=== PATIENT | male | born 1965 | race Caucasian/White ===

== ENCOUNTER 2017-01-27 18:34 | Emergency (ER) | payer OTHER ==
[2017-01-27] MEDS ORDERED: 0.9 % SODIUM CHLORIDE 1,000 ML BAG IV ONE (18:39)
[2017-01-27] MEDS ORDERED: ONDANSETRON HCL IV 4 MG/2 ML VIAL IV ONE (18:39)
[2017-01-27] MEDS ORDERED: MORPHINE SULFATE 5 MG/ML PFS IVP ONE ×2 (18:41→19:26)
--- NOTE | 2017-01-27 18:47 | Emergency Department Record ---
History of Present Illness - General Chief Complaint: Abdominal Pain Stated Complaint: BACK/ABD PAIN Time Seen by Provider: 01/27/17 18:39 Source: Patient, Family Mode of Arrival: Ambulatory Limitations: No limitations - History of Present Illness Initial Comments: 51 yo male presents with left sided abdominal pain that started fairly sudden about 1.5 hours ago. The pain has gradually increased in severity. It is an ache or pressure. He has mild nausea. No fever or vomiting. No hematuria or diarrhea. He does have a history of renal stones in the past and thinks he had his gall bladder removed. He had a normal day at work without pain. PCP is MD Complaint: Abdominal pain -: Hour(s) (1.5) Location: LLQ Radiation: LLQ Migration to: LLQ Severity: Severe Quality: Aching, Stabbing Consistency: Constant Improves With: Nothing Worsens With: Nothing Context: Other Associated Symptoms: Anorexia - Related Data Home Medications Medication Instructions Recorded Confirmed Last Taken Aspirin Chewable 81 mg PO DAILY 01/07/14 01/27/17 10/14/15 Lisinopril [Zestril] 20 mg PO DAILY 09/10/15 01/27/17 10/14/15 Colesevelam HCl [Welchol] 625 mg PO DAILY 01/27/17 01/27/17 Unknown Previous Rx's Medication Instructions Recorded Hydrocodone/Acetaminophen [[place] 1 each PO Q6H #15 tablet 01/27/17 7.5-325 Tablet] Tamsulosin HCl [Flomax] 0.4 mg PO DAILY #10 cap.er.24h 01/27/17 Allergies Allergy/AdvReac Type Severity Reaction Status Date / Time No Known Drug Allergies Allergy Verified 10/14/15 11:07 Review of Systems Constitutional: Denies: Chills, Fever, Malaise, Weakness Eyes: Denies: Eye discharge, Eye pain ENT: Denies: Congestion, Throat pain Respiratory: Denies: Cough, Dyspnea, Stridor, Wheezes Cardiovascular: Denies: Chest pain, Palpitations, Syncope Endocrine: Denies: Fatigue Gastrointestinal: Reports: As per HPI. Denies: Abdominal pain, Nausea, Vomiting Genitourinary: Denies: Dysuria, Frequency, Incontinence, Retention, Urgency Musculoskeletal: Reports: Back pain. Denies: Arthralgia, Joint swelling, Myalgia, Neck pain Skin: Denies: Bruising, Change in color, Rash Neurological: Denies: Headache, Numbness, Vertigo, Weakness Psychiatric: Denies: Anxiety Hematological/Lymphatic: Denies: Blood Clots, Easy bleeding, Easy bruising, Swollen glands Past Medical History - SOCIAL HISTORY Smoking Status: Current every day smoker - RESPIRATORY Hx Respiratory Disorders: No - CARDIOVASCULAR Hx Cardio Disorders: Yes Hx Cardiac Cath: Yes (1998, cardiac workup) Hx Chest Pain: Yes (1998) Hx Hypertension: Yes Comment:: hypercholesteremia - NEURO Hx Neuro Disorders: No - GI Hx GI Disorders: Yes Hx Reflux: Yes (hx 10years ago) Hx Rectal Bleeding: Yes - Hx Genitourinary Disorders: Yes Hx Bladder Problem: Yes (Bladder Stones) - ENDOCRINE Hx Endocrine Disorders: No - MUSCULOSKELETAL Hx Musculoskeletal Disorders: No - PSYCH Hx Psych Problems: No - HEMATOLOGY/ONCOLOGY Hx Hematology/Oncology Disorders: No Family Medical History Family Hx Comment (NOT TO BE USED IN PLACE OF ITEMS BELOW): Unknown due to adoption Physical Exam - General General Appearance: Alert, Oriented x3, Cooperative, No acute distress Limitations: No limitations - Head Head exam: Normal inspection - Eye Eye exam: Normal appearance, PERRL. negative: Conjunctival injection - ENT ENT exam: Normal exam Ear exam: Normal external inspection Nasal Exam: Normal inspection Mouth exam: Normal external inspection Teeth exam: Normal inspection - Neck Neck exam: Normal inspection, Full ROM. negative: Tenderness - Respiratory Respiratory exam: Normal lung sounds bilaterally. negative: Respiratory distress - Cardiovascular Cardiovascular Exam: Regular rate, Normal rhythm, Normal heart sounds - GI/Abdominal GI/Abdominal exam: Soft, Normal bowel sounds, Tenderness (mld left lower). negative: Hernia, Rebound, Rigid - Rectal Rectal exam: Deferred - exam: Deferred - Extremities Extremities exam: Normal inspection, Full ROM, Normal capillary refill. negative: Tenderness - Back Back exam: Reports: Normal inspection, CVA tenderness (L) (mild), Full ROM. Denies: CVA tenderness (R), Muscle spasm, Paraspinal tenderness, Rash noted, Tenderness, Vertebral tenderness - Neurological Neurological exam: Alert, Normal gait, Oriented X3 - Psychiatric Psychiatric exam: Normal affect, Normal mood - Skin Skin exam: Dry, Intact, Normal color, Warm Course - Reevaluation(s) Reevaluation #1: Vitals reviewed. No acute changes Prior CT reviewed from 2016. Large bladder stone. 01/27/17 18:46 Reevaluation #2: The CBC was normal The UA demonstrated RBC's no infection 01/27/17 19:15 Reevaluation #3: No acute changes on the BMP. Normal renal function. CT pending. 01/27/17 19:34 Reevaluation #4: The CT was reviewed 1mm proximal 1.3 stone The results were reviewed with the patient His pain is improving We discussed the results, reasons to return, home care and follow with urology referral. 01/27/17 19:57 01/27/17 20:20 The pain is well controlled We discussed again home care, follow up, reasons to return to the ED Medical Decision Making - Lab Data Result diagrams: 01/27/17 18:45 01/27/17 18:45 Disposition Disposition: Discharge Clinical Impression: Renal colic on left side Disposition: Home, Self-Care Condition: (1) Good Instructions: Renal Colic (ED) Additional Instructions: Return if you have fever, uncontrolled pain, vomiting or concerns Strain your urine to look for the stone Call your doctor and your urologist tomorrow for close follow up. Prescriptions: Hydrocodone/Acetaminophen [[place] 7.5-325 Tablet] 1 each PO Q6H #15 tablet Tamsulosin HCl [Flomax] 0.4 mg PO DAILY #10 cap.er.24h Referrals: DARNO FELIZ M.D. [MEDICAL DOCTOR] - [facility] [Provider Group] Forms: Patient Portal Access Time of Disposition: 19:59 Quality - Quality Measures Quality Measures: N/A - Blood Pressure Screening View Details: Yes Blood Pressure Classification: Hypertensive Reading Systolic Measurement: 137 Diastolic Measurement: 95 Screening for High Blood Pressure: < Pre-Hypertensive BP, F/U Documented > [ G8950] Pre-Hypertensive Follow-up Interventions: Referral to alternative/primary care provider.
[2017-01-27 19:06] LABS: BASO % 0.5 % (0-6); EOS % 4.5 % (0-6); GRAN % 58.1 % (47-80); HEMATOCRIT 45.8 % (42.0-52.0); HEMOGLOBIN 15.5 gm/dl (14.0-18.0); MEAN CORPUSCULAR HEMOGLOBIN 32.2 pg (27-33); MEAN CORPUSCULAR HGB CONC 33.8 g/dl (32-36); MEAN PLATELET VOLUME 10.8 fl (7.4-10.4); MONO % 9.9 % (0-9); PLATELET COUNT 201 K/uL (130-400); RED BLOOD COUNT 4.82 M/uL (4.40-5.70); WHITE BLOOD COUNT W/O DIFF 9.4 K/uL (4.2-12.2)
[2017-01-27 19:07] LABS: URINE APPEARANCE SL CLOUDY; URINE BILIRUBIN NEGATIVE (NEGATIVE); URINE BLOOD MODERATE (NEGATIVE); URINE COLOR YELLOW; URINE GLUCOSE (UA) NEGATIVE (NEGATIVE); URINE KETONE NEGATIVE (NEGATIVE); URINE LEUKOCYTE ESTERASE NEGATIVE (NEGATIVE); URINE NITRITE NEGATIVE (NEGATIVE); URINE PROTEIN TRACE (NEGATIVE); URINE UROBILINOGEN 0.2 E.U./dL (0.20 - 1.00)
[2017-01-27 19:14] LABS: URINE BACTERIA NONE SEEN; URINE EPITHELIAL CELLS NONE SEEN (FEW); URINE RBC 36 - 50 (NONE SEEN); URINE WBC NONE SEEN (0-2/hpf)
[2017-01-27 19:19] LABS: ALBUMIN 4.4 gm/dL (3.5-5.0); ALKALINE PHOSPHATASE 109 U/L (38-126); ALT/SGPT 64 U/L (21-72); ANION GAP 10.4 (7-16); AST/SGOT 29 U/L (17-59); BLOOD UREA NITROGEN 18 mg/dL (9-20); CARBON DIOXIDE 26.6 mmol/L (22-30); CREATININE 1.3 mg/dL (0.66-1.25); EST GLOMERULAR FILTRATION RATE > 60 ml/min; GLUCOSE,RANDOM 105 mg/dL (70-110); LIPASE 76 U/L (23-300)
[2017-01-27] MEDS ORDERED: KETOROLAC 30 MG/ML VIAL IVP ONE (19:27)
[2017-01-27] MEDS ORDERED: ONDANSETRON 4 MG ODT TABLET SL ONE (19:59)
[2017-01-27] MEDS ORDERED: HYDROCODONE/APAP 7.5/325MG TABLET PO ONE (19:59)
--- NOTE | 2017-01-28 14:46 | CT SCAN REPORT ---
EXAM: ABDOMEN AND PELVIS CT WITHOUT CONTRAST HISTORY: ACUTE LEFT LOWER QUADRANT ABDOMINAL PAIN. TECHNIQUE: Contiguous axial images from the lung bases to the symphysis pubis were obtained without IV contrast. Comparison: Abdomen and pelvis CT 12/09/15. FINDINGS: 3 mm right lower lobe nodule unchanged likely benign. 3 mm left lower lobe nodule unchanged likely benign. The lung bases are clear. Evaluation of the solid abdominal visceral organs is compromised due to lack of IV contrast, however, the liver, spleen, adrenals, and right kidney appear normal. There is mild to moderate left hydroureteronephrosis with partially obstructing 1 mm calculus in the proximal left ureter at the approximate L3 level. The pancreas and gallbladder are normal. The visualized loops of small and large bowel are of normal caliber with no wall thickening. Normal appendix. Mild aortoiliac calcification. No free intraperitoneal fluid or adenopathy. Suspect residual contrast in the dependent urinary bladder. No lytic or blastic lesions. IMPRESSION: MILD TO MODERATE LEFT HYDRONEPHROSIS WITH PARTIALLY OBSTRUCTING 1 MM CALCULUS IN THE PROXIMAL THIRD OF THE LEFT URETER. JOB NUMBER: [id number] [facility]
== END 2017-01-27 20:39 | disposition home or self-care (01) ==
LOC: ER 18:34
DX: N20.0 Calculus of kidney (principal); Z87.442 Personal history of urinary calculi
CPT/HCPCS: 99284 ×2; 96376; 96374; 96375; 83690; 85025; 80076; 80048; 81001; 74176; J1885; J2405; J2270; J7030

== ENCOUNTER 2017-02-09 12:45 | Emergency (ER) | payer OTHER ==
[2017-02-09] MEDS ORDERED: DIPHENHYDRAMINE HCL IV 50 MG/ML VIAL IVP ONE (12:59)
[2017-02-09] MEDS ORDERED: METHYLPREDNISOLONE PF 125MG/VIAL IVP ONE (12:59)
--- NOTE | 2017-02-09 13:07 | Emergency Department Record ---
History of Present Illness - General Chief complaint: Allergic Reaction Stated complaint: BEE STING, ALLERGIC Time Seen by Provider: 02/09/17 12:58 Source: Patient Mode of Arrival: Ambulatory Limitations: No limitations - History of Present Illness Initial Comments: The patient is here due to being stung on the L 4th finger by an insect about an hour ago and now developing pain in the hand with swelling and mild itching. He does have a hx of local allergix rxns to bee stings but no anaphylaxis. He denies any MATTHIAS, SOB, difficulty swallowing or tongue swelling but is itching over his L hand and arm. The patient also has had bilateral ankle pain and posterior R shoulder pain since the sting but denies any CP or L shoulder pain. He has had a mild URI recently and has been feeling slightly wheezy at home. MD Complaint: Allergic reaction Onset/Timin -: Hour(s) Exposure: Insect bite Symptoms: Itching, Rash Severity: Mild Treatment Prior to Arrival: None - Related Data Home Medications Medication Instructions Recorded Confirmed Last Taken Aspirin Chewable 81 mg PO DAILY 01/07/14 02/09/17 02/09/17 08:30 81 Lisinopril [Zestril] 20 mg PO DAILY 09/10/15 02/09/17 02/09/17 08:30 20 mg Colesevelam HCl [Welchol] 625 mg PO DAILY 01/27/17 02/09/17 02/09/17 08:30 Previous Rx's Medication Instructions Recorded Tamsulosin HCl [Flomax] 0.4 mg PO DAILY #10 cap.er.24h 01/27/17 Albuterol Sulfate [Proair Hfa] 2 puff IH QID PRN #1 inhaler 02/09/17 Prednisone [Prednisone 20Mg] 40 mg PO DAILY #10 tab 02/09/17 Allergies Allergy/AdvReac Type Severity Reaction Status Date / Time No Known Drug Allergies Allergy Verified 10/14/15 11:07 Review of Systems Constitutional: Denies: Chills, Fever Eyes: Denies: Eye discharge ENT: Denies: Congestion Respiratory: Denies: Cough, Dyspnea Past Medical History - SOCIAL HISTORY Smoking Status: Current every day smoker - RESPIRATORY Hx Respiratory Disorders: No - CARDIOVASCULAR Hx Cardio Disorders: Yes Hx Cardiac Cath: Yes (1998, neg cardiac workup) Hx Chest Pain: Yes (1998) Hx Hypertension: Yes Comment:: hypercholesteremia - NEURO Hx Neuro Disorders: No - GI Hx GI Disorders: Yes Hx Reflux: Yes (hx 10years ago) Hx Rectal Bleeding: Yes - Hx Genitourinary Disorders: Yes Hx Bladder Problem: Yes (Bladder Stones) - ENDOCRINE Hx Endocrine Disorders: No - MUSCULOSKELETAL Hx Musculoskeletal Disorders: No - PSYCH Hx Psych Problems: No - HEMATOLOGY/ONCOLOGY Hx Hematology/Oncology Disorders: No Family Medical History Family Hx Comment (NOT TO BE USED IN PLACE OF ITEMS BELOW): Unknown due to adoption Physical Exam - General General Appearance: Alert, Oriented x3, Cooperative, No acute distress - Head Head exam: Atraumatic, Normocephalic, Normal inspection - Eye Eye exam: Normal appearance, PERRL, EOMI - ENT Throat exam: Normal inspection. negative: Tonsillar erythema, Tonsillar exudate - Neck Neck exam: Normal inspection, Full ROM. negative: Tenderness - Respiratory Respiratory exam: Normal lung sounds bilaterally. negative: Respiratory distress - Cardiovascular Cardiovascular Exam: Regular rate, Normal rhythm, Normal heart sounds - GI/Abdominal GI/Abdominal exam: Soft, Normal bowel sounds. negative: Tenderness - Extremities Extremities exam: Full ROM. negative: Normal inspection (There is erythema, edema and itching to the L hand at the insect sting site.), Tenderness (The R shoulder is very mildly tender posteriorly which does reproduce his pain. The ankles are nontender with no bruising or swelling.) - Neurological Neurological exam: Alert, Normal gait, Oriented X3. negative: Abnormal gait, Motor sensory deficit Course - Reevaluation(s) Reevaluation #1: The patient is doing much better. He denies any pain or discomfort and states his L hand is feeling much better. He denies any itching, SOB, MATTHIAS, or rashes. 02/09/17 14:06 Reevaluation #2: The patient is doing much better at this time. His L hand is much improved and he states there is no itching, and decreased swelling with no pain. His Lungs are clear with no wheezing. The patient denies any SOB, MATTHIAS, or itching and states he is ready for home. 02/09/17 15:28 Medical Decision Making - Data Complexity MDM Data: Labs Ordered and/or Reviewed, X-Ray Ordered and/or Reviewed, EKG Ordered and/or Reviewed - Lab Data Result diagrams: 02/09/17 13:06 02/09/17 13:06 - EKG Data -: EKG Interpreted by Me EKG: No Acute Changes, Normal EKG - Radiology Data Radiology results: Report reviewed (CXR: Neg) Disposition Disposition: Discharge Clinical Impression: Allergic reaction to bee sting Disposition: Home, Self-Care Condition: (1) Good Instructions: General Allergic Reaction (ED) Additional Instructions: Please take the Albuterol, and Prednisone as directed and use OTC Benadryl for 3 -4 days. Please ice and elevate your L hand for the next 2 days. Return to the ER for any increased swelling, any pain, or any rash, Chest pain, or trouble breathing. Prescriptions: Albuterol Sulfate [Proair Hfa] 2 puff IH QID PRN #1 inhaler PRN Reason: Cough And Difficulty Breathing Prednisone [Prednisone 20Mg] 40 mg PO DAILY #10 tab Forms: Patient Portal Access Time of Disposition: 15:31 Quality - Quality Measures Quality Measures: N/A - Blood Pressure Screening View Details: Yes Blood Pressure Classification: Normal BP Reading Systolic Measurement: 119 Diastolic Measurement: 56 Screening for High Blood Pressure: < Normal BP, F/U Not Required > [G8783] Normal BP Follow-up Interventions: No follow-up required
[2017-02-09] MEDS ORDERED: IPRATROPIUM/ALBUTEROL (0.5MG/3MG) NEB INH ONE (13:09)
[2017-02-09] MEDS ORDERED: 0.9 % SODIUM CHLORIDE 1,000 ML BAG IV ONE (13:19)
[2017-02-09 13:24] LABS: HEMATOCRIT 43.7 % (42.0-52.0); HEMOGLOBIN 14.7 gm/dl (14.0-18.0); MEAN CELL VOLUME 94.4 fl (81-97); MEAN CORPUSCULAR HEMOGLOBIN 31.7 pg (27-33); MEAN CORPUSCULAR HGB CONC 33.6 g/dl (32-36); MEAN PLATELET VOLUME 10.8 fl (7.4-10.4); PLATELET COUNT 193 K/uL (130-400); RED BLOOD COUNT 4.63 M/uL (4.40-5.70); RED CELL DISTRIBUTION WIDTH 12.6 % (11.5-14.5); WHITE BLOOD COUNT W/O DIFF 7.8 K/uL (4.2-12.2)
[2017-02-09 13:45] LABS: ALB/GLOB RATIO 1.4 (1.1-1.8); ALBUMIN 4.2 gm/dL (3.5-5.0); ALKALINE PHOSPHATASE 109 U/L (38-126); ALT/SGPT 48 U/L (21-72); ANION GAP 13.6 (7-16); AST/SGOT 28 U/L (17-59); BILIRUBIN,TOTAL 0.64 mg/dL (0.2-1.3); BLOOD UREA NITROGEN 22 mg/dL (9-20); CARBON DIOXIDE 24.4 mmol/L (22-30); CREATININE 1.1 mg/dL (0.66-1.25); EST GLOMERULAR FILTRATION RATE > 60 ml/min; GLUCOSE,RANDOM 128 mg/dL (70-110); TOTAL PROTEIN 7.3 gm/dL (6.3-8.2)
--- NOTE | 2017-02-10 09:48 | RADIOLOGY REPORT ---
EXAM: CHEST, TWO VIEWS HISTORY: DIFFICULTY BREATHING. TECHNIQUE: Frontal and lateral views of the chest were obtained. Comparison: 11/02/03 chest. FINDINGS: The heart size is normal. The lungs are clear. No pneumothorax. IMPRESSION: NEGATIVE CHEST EXAMINATION. JOB NUMBER: [id number] [facility]
== END 2017-02-09 15:45 | disposition home or self-care (01) ==
LOC: ER 12:45
DX: T63.441A Toxic effect of venom of bees, accidental (unintentional), initial encounter (principal); R21 Rash and other nonspecific skin eruption; M25.512 Pain in left shoulder; R06.2 Wheezing; R06.00 Dyspnea, unspecified; M25.571 Pain in right ankle and joints of right foot; M25.572 Pain in left ankle and joints of left foot; I10 Essential (primary) hypertension; Z87.891 Personal history of nicotine dependence
CPT/HCPCS: 71020; 80053; 85027; 93005; 93010; 94640; 96374; 96375; 99284; J1200; J2930; J7030

== ENCOUNTER 2017-06-11 01:11 | Emergency (ER) | payer OTHER ==
[2017-06-11 01:40] LABS: HEMATOCRIT 45.2 % (42.0-52.0); HEMOGLOBIN 15.5 gm/dl (14.0-18.0); MEAN CELL VOLUME 94.4 fl (81-97); MEAN CORPUSCULAR HEMOGLOBIN 32.4 pg (27-33); MEAN CORPUSCULAR HGB CONC 34.3 g/dl (32-36); MEAN PLATELET VOLUME 10.5 fl (7.4-10.4); PLATELET COUNT 167 K/uL (130-400); RED BLOOD COUNT 4.79 M/uL (4.40-5.70); RED CELL DISTRIBUTION WIDTH 12.4 % (11.5-14.5); WHITE BLOOD COUNT W/O DIFF 8.8 K/uL (4.2-12.2)
[2017-06-11] MEDS ORDERED: ONDANSETRON HCL IV 4 MG/2 ML VIAL IV ONE (01:40)
[2017-06-11] MEDS ORDERED: KETOROLAC 30 MG/ML VIAL IVP ONE (01:40)
[2017-06-11] MEDS ORDERED: 0.9 % SODIUM CHLORIDE 1,000 ML BAG IV ONE ×2 (01:40→03:13)
[2017-06-11 01:47] LABS: URINE APPEARANCE CLEAR; URINE BILIRUBIN NEGATIVE (NEGATIVE); URINE BLOOD LARGE (NEGATIVE); URINE COLOR YELLOW; URINE GLUCOSE (UA) NEGATIVE (NEGATIVE); URINE KETONE NEGATIVE (NEGATIVE); URINE LEUKOCYTE ESTERASE NEGATIVE (NEGATIVE); URINE NITRITE NEGATIVE (NEGATIVE); URINE PROTEIN TRACE (NEGATIVE); URINE UROBILINOGEN 0.2 E.U./dL (0.20 - 1.00)
[2017-06-11 01:51] LABS: URINE MUCUS LIGHT; URINE WBC 0 - 2 (0-2/hpf)
[2017-06-11 01:53] LABS: BLOOD UREA NITROGEN 27 mg/dL (6-20); CREATININE 1.3 mg/dL (0.7-1.2); EST GLOMERULAR FILTRATION RATE > 60 mL/min
[2017-06-11 01:56] LABS: GLUCOSE,RANDOM 109 mg/dL (74-109)
[2017-06-11 01:58] LABS: PLATELET ESTIMATE NORMAL (NORMAL)
--- NOTE | 2017-06-11 02:08 | Emergency Department Record ---
History of Present Illness - General Chief complaint: Flank Pain Stated complaint: FLANK PAIN Time Seen by Provider: 06/11/17 01:34 Source: Patient Mode of Arrival: Ambulatory Limitations: No limitations - History of Present Illness Initial comments: pt has l flank pain that is similar to his previous kidney stones. pt has had to have lithotripsy in the past Onset/Timin -: Minutes(s) Location: Left flank Radiation: Back Severity: Moderate Severity scale (1-10): 9 Quality: Dull, Other Consistency: Constant Improves with: None Worsens with: None Reports: Dysuria - Related Data Sexually active: Yes Home Medications Medication Instructions Recorded Confirmed Last Taken [place]-3 Fatty Acids/Fish Oil [Fish 06/11/17 Unknown Oil 1,000 mg Capsule] Previous Rx's Medication Instructions Recorded Hydrocodone/Acetaminophen [[place] 1 each PO QID #14 tablet 06/11/17 5-325 Tablet] Allergies Allergy/AdvReac Type Severity Reaction Status Date / Time No Known Drug Allergies Allergy Verified 06/11/17 01:20 Travel Screening - Travel/Exposure Within Last 30 Days Have you traveled within the last 30 days?: No - Travel/Exposure Within Last Year Have you traveled outside the [place] in the last year?: No - Additonal Travel Details Have you been exposed to anyone with a communicable illness?: No - Travel Symptoms Symptom Screening: None Review of Systems Reviewed: No additional complaints except as noted below Constitutional: Reports: As per HPI. Denies: Chills, Fever, Malaise, Night sweats, Weakness, Weight change Eyes: Reports: As per HPI. Denies: Eye discharge, Eye pain, Photophobia, Vision change ENT: Reports: As per HPI. Denies: Congestion, Dental pain, Ear pain, Epistaxis , Hearing loss, Throat pain Respiratory: Reports: As per HPI. Denies: Cough, Dyspnea, Hemoptysis, Stridor, Wheezes Cardiovascular: Reports: As per HPI. Denies: Arrhythmia, Chest pain, Dyspnea on exertion, Edema, Murmurs, Orthopnea, Palpitations, Paroxysmal nocturnal dyspnea, Rheumatic Fever, Syncope Endocrine: Reports: As per HPI. Denies: Fatigue, Heat or cold intolerance, Polydipsia, Polyuria Gastrointestinal: Reports: As per HPI. Denies: Abdominal pain, Constipation, Diarrhea, Hematemesis, Hematochezia, Melena, Nausea, Vomiting Genitourinary: Reports: As per HPI. Denies: Dysuria, Frequency, Hematuria, Incontinence, Retention, Testicular pain, Testicular mass, Urgency Musculoskeletal: Reports: As per HPI. Denies: Arthralgia, Back pain, Gout, Joint swelling, Myalgia, Neck pain Skin: Reports: As per HPI. Denies: Bruising, Change in color, Change in hair/ nails, Lesions, Pruritus, Rash Neurological: Reports: As per HPI. Denies: Abnormal gait, Confusion, Headache, Numbness, Paresthesias, Seizure, Tingling, Tremors, Vertigo, Weakness Psychiatric: Reports: As per HPI. Denies: Anxiety, Auditory hallucinations, Depression, Homicidal thoughts, Suicidal thoughts, Visual hallucinations Hematological/Lymphatic: Reports: As per HPI. Denies: Anemia, Blood Clots, Easy bleeding, Easy bruising, Swollen glands Past Medical History - SOCIAL HISTORY Smoking Status: Current every day smoker Alcohol Use: Occasional Drug Use: None - RESPIRATORY Hx Respiratory Disorders: No - CARDIOVASCULAR Hx Cardio Disorders: Yes Hx Cardiac Cath: Yes (1998, cardiac workup) Hx Chest Pain: Yes (1998) Hx Hypertension: Yes Comment:: hypercholesteremia - NEURO Hx Neuro Disorders: No - GI Hx GI Disorders: Yes Hx Reflux: Yes (hx 10years ago) Hx Rectal Bleeding: Yes - Hx Genitourinary Disorders: Yes Hx Bladder Problem: Yes (Bladder Stones) - ENDOCRINE Hx Endocrine Disorders: No - MUSCULOSKELETAL Hx Musculoskeletal Disorders: No - PSYCH Hx Psych Problems: No - HEMATOLOGY/ONCOLOGY Hx Hematology/Oncology Disorders: No Family Medical History Any Significant Family History?: No Family Hx Comment (NOT TO BE USED IN PLACE OF ITEMS BELOW): Unknown due to adoption Physical Exam - General General Appearance: Alert, Oriented x3, Cooperative, Mild distress - Head Head exam: Normal inspection - Eye Eye exam: Normal appearance, PERRL, EOMI Pupils: Normal accommodation - ENT ENT exam: Normal exam, Mucous membranes moist, Normal external ear exam, Normal orophraynx Ear exam: Normal external inspection. negative: External canal tenderness Nasal Exam: Normal inspection. negative: Discharge, Sinus tenderness Mouth exam: Normal external inspection, Tongue normal Teeth exam: Normal inspection. negative: Dental caries Throat exam: Normal inspection. negative: Tonsillar erythema, Tonsillar exudate - Neck Neck exam: Normal inspection, Full ROM. negative: Tenderness - Respiratory Respiratory exam: Normal lung sounds bilaterally. negative: Respiratory distress - Cardiovascular Cardiovascular Exam: Regular rate, Normal rhythm, Normal heart sounds - GI/Abdominal GI/Abdominal exam: Soft, Normal bowel sounds. negative: Tenderness - Rectal Rectal exam: Deferred - exam: Deferred - Extremities Extremities exam: Normal inspection, Full ROM, Normal capillary refill. negative: Tenderness - Back Back exam: Reports: Normal inspection, Full ROM. Denies: Muscle spasm, Rash noted, Tenderness - Neurological Neurological exam: Alert, Normal gait, Oriented X3, Reflexes normal - Psychiatric Psychiatric exam: Normal affect, Normal mood - Skin Skin exam: Dry, Intact, Normal color, Warm Course Vital Signs 06/11/17 01:21 Temperature 98 F Pulse Rate [ 70 Pulse Ox Probe] Respiratory 16 Rate Blood Pressure 137/85 [Left Arm] Pulse Ox 96 - Reevaluation(s) Reevaluation #1: 06/11/17 03:52 pt feels much better. pt told to push fluids Medical Decision Making - Lab Data Result diagrams: 06/11/17 01:30 06/11/17 01:30 Lab Results 06/11/17 06/11/17 06/11/17 Range/Units 01:30 01:30 01:30 WBC 8.8 (4.2-12.2) K/uL RBC 4.79 (4.40-5.70) M/uL Hgb 15.5 (14.0-18.0) gm/dl Hct 45.2 (42.0-52.0) % MCV 94.4 (81-97) fl MCH 32.4 (27-33) pg MCHC 34.3 (32-36) g/dl RDW 12.4 (11.5-14.5) % Plt Count 167 (130-400) K/uL MPV 10.5 H (7.4-10.4) fl Neutrophils % 53.0 (47-80) % Eosinophils % Not Reportable Basophils % Not Reportable Lymphocytes 31.0 (16-45) % Monocytes 13.0 H (0-9) % Platelet Estimate Normal (NORMAL) RBC Morphology Normal Eosinophil Count 3.0 (0-6) % Sodium 138 (136-145) mmol/L Potassium 4.2 (3.4-4.5) mmol/L Chloride 99 (98-107) mmol/L Carbon Dioxide 24.0 (22-29) mmol/L Anion Gap 15.0 (7-16) BUN 27 H (6-20) mg/dL Creatinine 1.3 H (0.7-1.2) mg/dL Estimated GFR > 60 mL/min Random Glucose 109 (74-109) mg/dL Calcium 8.9 (8.6-10.0) mg/dL Urine Color Yellow Urine Appearance Clear Urine pH 5.5 (5.0-8.0) Ur Specific [place] >= 1.030 (1.002-1.030) Urine Protein Trace H (NEGATIVE) Urine Glucose (UA) Negative (NEGATIVE) Urine Ketones Negative (NEGATIVE) Urine Blood Large H (NEGATIVE) Urine Nitrite Negative (NEGATIVE) Urine Bilirubin Negative (NEGATIVE) Urine Urobilinogen 0.2 (0.20 - 1.00) E.U./dL Ur Leukocyte Esterase Negative (NEGATIVE) Urine RBC 7 - 10 (NONE SEEN) Urine WBC 0 - 2 (0-2/hpf) Urine Mucus Light Disposition Disposition: Discharge Clinical Impression: Renal lithiasis, Dehydration Hydronephrosis Qualifiers: Hydronephrosis type: with ureteral calculous obstruction Qualified Code(s): N13.2 - Hydronephrosis with renal and ureteral calculous obstruction Disposition: Home, Self-Care Condition: (1) Good Instructions: Kidney Stones (ED) Additional Instructions: follow up with urologist without fail. return sooner if worse. push fluids. Prescriptions: Hydrocodone/Acetaminophen [[place] 5-325 Tablet] 1 each PO QID #14 tablet Forms: Patient Portal Access Quality - Quality Measures Quality Measures: N/A - Blood Pressure Screening Does Patient Have Any of the Following: No Blood Pressure Classification: Pre-Hypertensive BP Reading Systolic Measurement: 128 Diastolic Measurement: 78 Screening for High Blood Pressure: < Pre-Hypertensive BP, F/U Documented > [ G8950] Pre-Hypertensive Follow-up Interventions: Follow-up with rescreen every year.
[2017-06-11] MEDS ORDERED: HYDROCODONE/APAP 5/325MG TABLET PO ONE (03:54)
--- NOTE | 2017-06-12 19:34 | CT SCAN REPORT ---
EXAM: CT SCAN ABDOMEN/PELVIS WO CONTRAST HISTORY: LEFT UPPER QUADRANT PAIN. TECHNIQUE: Sequential axial images were obtained from the diaphragms through the ischiorectal fossa without intravenous or oral contrast administration. FINDINGS: Visualized lung bases appear normal. There is mild cardiomegaly. There is fatty infiltration of the liver. Gallbladder, pancreas, and spleen appear normal. The adrenal glands appear normal. There is a 2 mm obstructing calculus in the left proximal ureter. This appear similar in appearance when compared to prior exam dated 01/27/17. There is mild perinephric fat stranding. In addition, there is hyperdensity within the urinary bladder, which appears similar in appearance when compared to the prior exam. This may be related to calcification. Direct visualization is recommended. The small bowel appears normal. The appendix is visualized and appears normal. The colon appears normal. There are fat-containing bilateral inguinal hernias. The osseous structures appear grossly unremarkable. IMPRESSION: 1. A 2 MM OBSTRUCTING CALCULUS IN THE LEFT PROXIMAL URETER. THIS PRODUCED MILD LEFT HYDRONEPHROSIS AND PERINEPHRIC FAT STRANDING. FINDINGS ARE SIMILAR IN APPEARANCE WHEN COMPARED TO A PRIOR EXAM DATED 01/27/17. IN ADDITION, THERE IS HYPERDENSITY IN THE URINARY BLADDER. THIS ALSO APPEARS SIMILAR IN APPEARANCE WHEN COMPARED TO A PRIOR EXAMINATION DATED 01/27/17. DIRECT VISUALIZATION IS RECOMMENDED GIVEN THE CHRONICITY OF THESE FINDINGS. 2. FATTY INFILTRATION OF THE LIVER. JOB NUMBER: [id number] [facility]
== END 2017-06-11 04:13 | disposition home or self-care (01) ==
LOC: ER 01:11
DX: N13.2 Hydronephrosis with renal and ureteral calculous obstruction (principal); E86.0 Dehydration; Z87.442 Personal history of urinary calculi
CPT/HCPCS: 99284 ×2; 96374; 96375; 96361; 80048; 81001; 85027; 74176; J1885; J2405; J7030

== ENCOUNTER 2017-08-29 12:55 | Emergency (ER) | payer SELFPAY ==
[2017-08-29] MEDS ORDERED: IBUPROFEN 600 MG TABLET PO ONE (13:07)
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
--- NOTE | 2017-08-30 09:39 | RADIOLOGY REPORT ---
EXAM: RIGHT FOOT, THREE VIEWS HISTORY: PAIN AFTER ICE FELL ON FOOT AND LOWER LEG. TECHNIQUE: Three views of the right foot were obtained. Comparison: Same day radiographic examination of the right lower leg. Encounter: Initial. FINDINGS: There is normal bone mineralization. No acute fracture, dislocation , or destructive bone lesion is seen. There is a small chronic appearing ossific density projecting near the anterior margin of the tibiotalar joint likely a spur arising from the distal tibia. There is a chronic appearing ossific density projecting dorsally at the level of the metatarsals distally as seen on the lateral view. This cannot be further localized. There are mild degenerative changes scattered throughout the foot without periarticular erosion. A small to moderate sized plantar calcaneal spur is present and there is minor spurring at the Achilles tendon insertion on the posterior calcaneus. IMPRESSION: 1. NO CONVINCING EVIDENCE OF ACUTE FRACTURE NOR DISLOCATION. 2. MILD DEGENERATIVE CHANGES. 3. SMALL CHRONIC APPEARING OSSIFIC DENSITY SEEN ON THE LATERAL VIEW PROJECTING DORSAL TO THE DISTAL METATARSALS. THIS CANNOT BE FURTHER LOCALIZED. 4. CALCANEAL SPURRING. JOB NUMBER: [id number] [facility]
--- NOTE | 2017-08-30 09:43 | RADIOLOGY REPORT ---
EXAM: RIGHT LOWER LEG HISTORY: ANTERIOR LOWER LEG PAIN AFTER ICE FELL ON LEG AND ANKLE. TECHNIQUE: AP and lateral views of the right lower leg were obtained. Comparison: Same day radiographic examination of the right ankle. Encounter: Initial. FINDINGS: There is normal bone mineralization. No convincing acute fracture, dislocation, or destructive bone lesion is seen. A small spur is suggested arising from the anterior margin of the distal tibia. There are mild degenerative changes of the right knee. Chronic appearing ossicles are noted at the level of the tibial tuberosity. There is questionable minor anterior soft tissue swelling distally. IMPRESSION: 1. NO ACUTE BONE NOR JOINT ABNORMALITY IDENTIFIED. 2. MINOR ANTERIOR SOFT TISSUE SWELLING DISTALLY. JOB NUMBER: [id number] MTDD
== END 2017-08-29 13:56 | disposition home or self-care (01) ==
LOC: ER 12:55
DX: S80.11XA Contusion of right lower leg, initial encounter (principal); M79.671 Pain in right foot; W01.0XXA Fall on same level from slipping, tripping and stumbling without subsequent striking against object, initial encounter; Y99.0 Civilian activity done for income or pay; I10 Essential (primary) hypertension; F17.210 Nicotine dependence, cigarettes, uncomplicated
CPT/HCPCS: 99283; 99284

== ENCOUNTER 2017-11-05 03:27 | Emergency (ER) | payer OTHER ==
[2017-11-05] MEDS ORDERED: ASPIRIN 81 MG CHEWABLE TABLET PO ONE (03:38)
--- NOTE | 2017-11-05 03:42 | Emergency Department Record ---
History of Present Illness - General Chief Complaint: Chest Pain Stated Complaint: SOB Time Seen by Provider: 11/05/17 03:38 Source: Patient Mode of Arrival: Ambulatory Limitations: No limitations - History of Present Illness Initial Comments: 52 yo male presents to ED for evaluation of shortness of breath and chest pain symptoms that began this morning after waking up. Patient denies recent illness , fevers, chills, or cough symptoms. Patient denies previous heart of lung problems, but does report a history of panic attacks previously. MD Complaint: Chest pain Onset/Timin -: Minutes(s) Onset: Awoke with symptoms Pain Location: Left chest Quality: Heaviness Consistency: Constant Improves With: Nothing Worsens With: Nothing Anginal Symptoms: Dyspnea Treatments Prior to Arrival: None - Related Data Previous Rx's Medication Instructions Recorded Ibuprofen [Motrin] 800 mg PO TID PRN #20 tab 08/29/17 Allergies Allergy/AdvReac Type Severity Reaction Status Date / Time No Known Drug Allergies Allergy Verified 06/11/17 01:20 Travel Screening - Travel/Exposure Within Last 30 Days Have you traveled within the last 30 days?: No Review of Systems Constitutional: Denies: Chills, Fever, Malaise, Night sweats Eyes: Denies: Eye discharge, Eye pain ENT: Denies: Congestion, Ear pain, Epistaxis Respiratory: Reports: Dyspnea. Denies: Cough Cardiovascular: Reports: Chest pain. Denies: Dyspnea on exertion, Edema, Palpitations Endocrine: Denies: Fatigue, Heat or cold intolerance Gastrointestinal: Denies: Abdominal pain, Nausea, Vomiting Genitourinary: Denies: Incontinence, Retention Musculoskeletal: Denies: Arthralgia, Back pain, Gout, Joint swelling Skin: Denies: Bruising, Change in color Neurological: Denies: Abnormal gait, Confusion, Headache, Seizure Psychiatric: Denies: Anxiety Hematological/Lymphatic: Denies: Anemia, Blood Clots Past Medical History - SOCIAL HISTORY Smoking Status: Current every day smoker Alcohol Use: Occasional Drug Use: None - RESPIRATORY Hx Respiratory Disorders: No - CARDIOVASCULAR Hx Cardio Disorders: Yes Hx Cardiac Cath: Yes (1998, neg cardiac workup) Hx Chest Pain: Yes (1998) Hx Hypertension: Yes Comment:: hypercholesteremia - NEURO Hx Neuro Disorders: No - GI Hx GI Disorders: Yes Hx Reflux: Yes (hx 10years ago) Hx Rectal Bleeding: Yes - Hx Genitourinary Disorders: Yes Hx Bladder Problem: Yes (Bladder Stones) - ENDOCRINE Hx Endocrine Disorders: No - MUSCULOSKELETAL Hx Musculoskeletal Disorders: No - PSYCH Hx Psych Problems: No - HEMATOLOGY/ONCOLOGY Hx Hematology/Oncology Disorders: No Family Medical History Any Significant Family History?: No Family Hx Comment (NOT TO BE USED IN PLACE OF ITEMS BELOW): Unknown due to adoption Physical Exam - General General Appearance: Alert, Oriented x3, Cooperative, Anxious Limitations: No limitations - Head Head exam: Atraumatic, Normocephalic, Normal inspection Head exam detail: negative: Abrasion, Contusion, Martell's sign, General tenderness, Hematoma, Laceration - Eye Eye exam: Normal appearance. negative: Conjunctival injection, Periorbital swelling, Periorbital tenderness, Scleral icterus - ENT Ear exam: negative: Auricular hematoma, Auricular trauma Nasal Exam: negative: Active bleeding, Discharge, Dried blood, Foreign body Mouth exam: negative: Drooling, Laceration, Muffled voice, Tongue elevation - Neck Neck exam: Normal inspection. negative: Meningismus, Tenderness - Respiratory Respiratory exam: Normal lung sounds bilaterally. negative: Rales, Respiratory distress, Rhonchi, Stridor - Cardiovascular Cardiovascular Exam: Regular rate, Normal rhythm, Normal heart sounds - GI/Abdominal GI/Abdominal exam: Soft. negative: Rebound, Rigid, Tenderness - Rectal Rectal exam: Deferred - exam: Deferred - Extremities Extremities exam: Normal inspection. negative: Calf tenderness, Pedal edema, Tenderness - Back Back exam: Denies: CVA tenderness (R), CVA tenderness (L) - Neurological Neurological exam: Alert, Normal gait, Oriented X3 - Psychiatric Psychiatric exam: Anxious - Skin Skin exam: Normal color. negative: Abrasion Type of lesion: negative: abrasion Course Vital Signs 11/05/17 03:28 Temperature 97.5 F L Pulse Rate 70 Respiratory 20 Rate Blood Pressure 134/90 Pulse Ox 97 - Reevaluation(s) Reevaluation #1: 11/05/17 03:41 EKG: NSR 59 Normal axis, normal intervals No acute ST-T wave changes Reevaluation #2: 11/05/17 04:33 Labs reviewed and are grossly unremarkable for an acute process. CXR: Negative. Reevaluation #3: 11/05/17 04:37 HEART score calculated and is 2, overall low risk for MACE. Will perform repeat Troponin at 4-hours. Patient was reassessed, reports that he is feeling much better and believes his symptoms may have been the result of panic attack. He is in agreement with the plan of care for repeat Troponin at 7:40 to exclude an acute cardiac process. Reevaluation #4: 11/05/17 04:56 Repeat EKG:NSR 54 Normal axis, normal intervals RSR' III with T wave inversion, unchanged from 01/31. Likely due to lead placement change from 1st EKG performed during THIS ED visit. Reevaluation #5: 11/05/17 06:47 Patient reassessed, resting pain-free at this time. Case was discussed with oncoming provider, will assume care at this time pending repeat Troponin. Medical Decision Making - Lab Data Result diagrams: 11/05/17 03:35 11/05/17 03:35 Disposition Disposition: Discharge Clinical Impression: Chest pain Qualifiers: Chest pain type: unspecified Qualified Code(s): R07.9 - Chest pain, unspecified Disposition: Home, Self-Care Condition: (2) Stable Instructions: Chest Pain (ED) Additional Instructions: Return to ED if your symptoms worsen or if you have any concerns. Follow-up with your family doctor in 3-5 days for further evaluation of your chest-pain symptoms, outpatient cardiac stress testing. Forms: Patient Portal Access Quality - Quality Measures Quality Measures: N/A - Blood Pressure Screening Does Patient Have Any of the Following: No Blood Pressure Classification: Hypertensive Reading Systolic Measurement: 134 Diastolic Measurement: 90 Screening for High Blood Pressure: < First Hypertensive BP, F/U Documented > [ G8950] First Hypertensive Follow-up Interventions: Referral to alternative/primary care provider.
[2017-11-05] MEDS ORDERED: 0.9 % SODIUM CHLORIDE 1000ML 1,000 ML IV SCH (03:45)
[2017-11-05 03:49] LABS: BASO % 0.5 % (0-6); EOS % 4.5 % (0-6); HEMATOCRIT 47.4 % (42.0-52.0); HEMOGLOBIN 15.9 gm/dl (14.0-18.0); LYMPH % 37.2 % (16-45); MEAN CELL VOLUME 96.5 fl (81-97); MEAN CORPUSCULAR HEMOGLOBIN 32.4 pg (27-33); MEAN CORPUSCULAR HGB CONC 33.5 g/dl (32-36); MEAN PLATELET VOLUME 10.9 fl (7.4-10.4); MONO % 10.8 % (0-9); PLATELET COUNT 172 K/uL (130-400); RED BLOOD COUNT 4.91 M/uL (4.40-5.70); RED CELL DISTRIBUTION WIDTH 12.3 % (11.5-14.5); WHITE BLOOD COUNT W/O DIFF 8.3 K/uL (4.2-12.2)
[2017-11-05 03:55] LABS: BLOOD UREA NITROGEN 22 mg/dL (6-20); CREATININE 0.9 mg/dL (0.7-1.2); EST GLOMERULAR FILTRATION RATE > 60 mL/min
[2017-11-05 03:56] LABS: TOTAL PROTEIN 7.4 g/dL (6.6-8.7)
[2017-11-05 03:58] LABS: GLUCOSE,RANDOM 104 mg/dL (74-109)
[2017-11-05 04:00] LABS: ALT/SGPT 30 U/L (<41)
[2017-11-05 04:01] LABS: ALB/GLOB RATIO 1.2 (1.1-1.8); ALBUMIN 4.1 g/dL (4.0-5.0); ALKALINE PHOSPHATASE 99 U/L (40-129); AST/SGOT 20 U/L (10.0-50.0)
--- NOTE | 2017-11-06 15:53 | RADIOLOGY REPORT ---
DATE: 11/05/2017. EXAM: FRONTAL AND LATERAL VIEWS OF THE CHEST. HISTORY: Difficulty breathing. TECHNIQUE: Frontal and lateral views of the chest. COMPARISON: 02/09/2017 chest. FINDINGS: Heart size is stable. Osteopenia. Underlying chronic obstructive pulmonary disease with chronic-appearing interstitial change. No pneumothorax. IMPRESSION: UNDERLYING CHRONIC OBSTRUCTIVE PULMONARY DISEASE. CHRONIC INTERSTITIAL CHANGES BILATERALLY. JOB NUMBER: [id number] MTDD
== END 2017-11-05 08:19 | disposition home or self-care (01) ==
LOC: ER 03:27
DX: R07.9 Chest pain, unspecified (principal); R06.02 Shortness of breath; I10 Essential (primary) hypertension; F17.210 Nicotine dependence, cigarettes, uncomplicated
CPT/HCPCS: 71046; 80053; 84484; 85025; 85379; 93005; 93010; 99284; J7030

== ENCOUNTER 2017-11-30 11:53 | Emergency (ER) | payer OTHER ==
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
== END 2017-11-30 13:47 | disposition home or self-care (01) ==
LOC: ER 11:53
DX: S46.112A Strain of muscle, fascia and tendon of long head of biceps, left arm, initial encounter (principal); X50.0XXA Overexertion from strenuous movement or load, initial encounter; I10 Essential (primary) hypertension; F17.210 Nicotine dependence, cigarettes, uncomplicated
CPT/HCPCS: 99283

== ENCOUNTER 2017-12-15 11:11 | Day surgery (SDC) | payer OTHER ==
[~2017-12-15 11:11] MED LIST: ACETAMINOPHEN 1,000 MG/100 ML BTL IV ONE
[2017-12-15] MEDS ORDERED: ALBUTEROL HFA 8 GM INHALER INH ONE (11:12)
[2017-12-15] MEDS ORDERED: SEVOFLURANE 250 ML INH ONE (11:12)
[2017-12-15] MEDS ORDERED: LIDOCAINE 2% MDV (20MG/ML) 20ML VIAL IV ONE (11:12)
[2017-12-15] MEDS ORDERED: SUFENTANIL CITRATE 50 MCG/ML AMPUL IV ONE (11:12)
[2017-12-15] MEDS ORDERED: ONDANSETRON HCL IV 4 MG/2 ML VIAL IVP ONE (11:12)
[2017-12-15] MEDS ORDERED: PROPOFOL 10 MG/ML VIAL IV ONE (11:12)
[2017-12-15] MEDS ORDERED: *PACU ONLY* KETAMINE HCL 10 MG/ML (20ML) VIAL IV ONE (11:12)
--- NOTE | 2017-12-19 13:10 | Operative Note ---
DATE OF SURGERY: 12/15/2017 Surgeon: Donavon Ash DO PREOPERATIVE DIAGNOSIS: Tear of the left biceps tendon, distal. POSTOPERATIVE DIAGNOSIS: Tear of the left biceps tendon, distal. OPERATION: Repair of distal biceps tendon, left elbow. DESCRIPTION OF PROCEDURE: This 52-year-old male was taken to the operating room and placed in the supine position on the operating room table. General anesthetic was administered. The left upper extremity was elevated. It was prepped with Hibiclens and draped in the usual sterile fashion. It was exsanguinated and the tourniquet inflated to 250 mmHg. A lazy-S type incision was made over the antecubital fossa and dissection was carried down through the skin and subcutaneous tissue. Hemostasis was obtained with the electrocautery. Blunt and sharp dissection was carried down to the biceps tendon which was identified but was extremely scarred down to the aponeurosis and the surrounding soft tissue. Bluntly and sharply we dissected this tendon free and then trimmed the scarred edges of the tendon. He had an extremely small caliber tendon for the sides of his arm. Brachioradialis tendon was identified and found to be normal. A Krackow type stitch was used in the tendon with #2 FiberWire suture. Once this had been accomplished, we placed this in the antecubital fossa, flexed the elbow, and made a posterior incision. This incision was carried down through the skin and subcutaneous tissue. Dissection was carried down to the radial tuberosity which was easily identified. Once this had been exposed, a drill hole was made in the tuberosity to accept the biceps tendon and then 2 holes were drilled on the opposite side of the bone and a Hewson suture passer was then used to pass into the drill defect in the tuberosity to grab the sutures which had been passed from anterior to posterior. A single suture was placed through one drill hole and a second suture was placed through a second drill hole. Then the sutures were drawn tight to bring the tendon down into the hole created in the tuberosity of the radius. Once this had been accomplished, the sutures were tied over a bony bridge and the repair was felt to be satisfactory. The wounds were irrigated with lactated Ringer's solution. The posterior fascia was closed with 4-0 Vicryl and the subcutaneous tissue closed with the same suture and the skin with a running 4-0 nylon suture. We then addressed the anterior incision. The repair seemed to be holding satisfactorily and the wound irrigated with lactated Ringer's solution. Hemostasis obtained with the electrocautery and the wound closed with 4-0 Vicryl suture and the skin closed with a running 4-0 nylon suture. Sterile dressings were applied with the elbow flexed at 90 degrees and the forearm in 3/4 supination. Plaster splint was applied after the dressing and Webril had been applied. The patient was then taken to the recovery room in satisfactory condition. GROSS PATHOLOGY: This patient had a rupture of the distal biceps tendon which showed extreme scarring of the biceps tendon to the surrounding tissue which made dissection of the tendon much more difficult. Once we found the tendon, the proximal 2/3 of the tendon was normal. The caliber of the biceps tendon was extremely small for the size of this patient. CC: DAKOTA ALBA MD, FACP [facility]
== END 2017-12-15 16:05 | disposition home or self-care (01) ==
LOC: SUR 11:11
PROVIDERS: ATTEND Orthopaedic Surgery
DX: S46.212A Strain of muscle, fascia and tendon of other parts of biceps, left arm, initial encounter (principal); I10 Essential (primary) hypertension; E78.00 Pure hypercholesterolemia, unspecified
CPT/HCPCS: 24341; 23430; 01716; J2405

== ENCOUNTER 2018-12-26 18:32 | Emergency (ER) | payer OTHER ==
[2018-12-26] MEDS ORDERED: ONDANSETRON 4 MG ODT TABLET SL ONE (18:41)
--- NOTE | 2018-12-26 18:49 | Emergency Department Record ---
History of Present Illness - General Chief complaint: Eye Problem Stated complaint: WIRE THROUGH EYE Time Seen by Provider: 12/26/18 18:40 Source: Patient Mode of Arrival: Ambulatory Limitations: No limitations Travel/Exposure to [place] Within 21 Days of Symptoms: No - History of Present Illness Initial comments: 53 yo male presents to ED for evaluation following traumatic injury to the right eye. Patient reports that he was mowing his lawn when a metallic wire shot up from the mower striking him in the right face and eye. Patient reports decreased vision and pain to the right eye and right face, denies oral injury or trauma. Patient denies health problems other than HTN, denies anticoagulation use. Patient's tetanus was approximately 5 years ago. MD chief complaint: Eye pain, Eye injury Onset/Timin -: Minutes(s) Onset Description: Sudden Location: Right eye Place: Home If Injury: None Eye Symptoms: Pain Severity: Moderate If Pain, Quality: Aching Consistency: Constant Context: Injury Associated Symptoms: None Treatments Prior to Arrival: None - Related Data Hx Tetanus Toxoid Vaccination: Yes Year of Tetanus Vaccination: 2015 Home Medications Medication Instructions Recorded Confirmed Last Taken Pravastatin Sodium [Pravachol] 40 mg PO DAILY 12/26/18 12/26/18 1 Day Ago ~12/25/18 Tramadol HCl [Ultram] 25 mg PO BID PRN 12/26/18 12/26/18 1 Day Ago ~12/25/18 Previous Rx's Medication Instructions Recorded Ibuprofen [Motrin] 800 mg PO TID PRN #20 tab 08/29/17 Allergies Allergy/AdvReac Type Severity Reaction Status Date / Time No Known Drug Allergies Allergy Verified 12/26/18 18:48 Review of Systems Constitutional: Denies: Chills, Fever, Malaise, Night sweats Eyes: Reports: Eye pain. Denies: Eye discharge ENT: Denies: Congestion, Ear pain, Epistaxis Respiratory: Denies: Cough, Dyspnea Cardiovascular: Denies: Chest pain, Dyspnea on exertion Endocrine: Denies: Fatigue, Heat or cold intolerance Gastrointestinal: Denies: Abdominal pain, Nausea, Vomiting Genitourinary: Denies: Incontinence, Retention Musculoskeletal: Denies: Arthralgia, Back pain, Gout Skin: Denies: Bruising, Change in color Neurological: Denies: Abnormal gait, Confusion, Headache, Tingling, Tremors Psychiatric: Denies: Anxiety Hematological/Lymphatic: Denies: Anemia, Blood Clots Past Medical History - SOCIAL HISTORY Smoking Status: Current every day smoker Alcohol Use Comment: couple cocktails nightly - RESPIRATORY Hx Respiratory Disorders: No - CARDIOVASCULAR Hx Cardio Disorders: Yes Hx Cardiac Cath: Yes (1998, cardiac workup) Hx Chest Pain: Yes (1998 and 2017) Hx Hypertension: Yes (on meds good control) Comment:: hyper lipidemia - NEURO Hx Neuro Disorders: No - GI Hx GI Disorders: Yes Hx Reflux: Yes (hx 10years ago) Hx Rectal Bleeding: Yes - Hx Genitourinary Disorders: Yes Hx Bladder Problem: Yes (Bladder Stones) Hx Kidney Stones: Yes (lithotripsy) - ENDOCRINE Hx Endocrine Disorders: No - MUSCULOSKELETAL Hx Musculoskeletal Disorders: Yes Comment:: joint pain - PSYCH Hx Psych Problems: Yes Hx Anxiety: Yes (occassionally panic attacks) - HEMATOLOGY/ONCOLOGY Hx Hematology/Oncology Disorders: No Family Medical History Family Hx Comment (NOT TO BE USED IN PLACE OF ITEMS BELOW): Unknown due to adoption Physical Exam - General General Appearance: Alert, Oriented x3, Cooperative, Moderate distress Limitations: No limitations - Head Head exam: Normocephalic Head exam detail: Abrasion, Laceration. negative: General tenderness, Hematoma Course - Reevaluation(s) Reevaluation #1: 12/26/18 18:46 [facility] contacted, case was discussed with Dr. Alvarez, will accept the patient for evaluation. Clindamycin ordered to infuse. Tetanus ordered to update. Will obtain STAT CT orboits prior to transfer to [facility]. EMS contacted for STAT transfer as well. Reevaluation #2: 12/26/18 19:03 (3) EMS services contacted for STAT transfer to [facility] ([facility], [facility], [facility]) no rig is currently available. Will continue to contac other EMS services for transfer. Reevaluation #3: 12/26/18 19:21 Laboratory studies were reviewed and appears grossly unremarkable for an acute process. EMS is present for transfer at this time. CT Orbits was reviewed following transfer: Right magda-orbital STS STS right cheek No FB present No air within the globe No evidence for globe perforation Medical Decision Making - Lab Data Result diagrams: 12/26/18 18:40 12/26/18 18:40 Disposition Disposition: Transfer Clinical Impression: Ruptured globe Qualifiers: Encounter type: initial encounter Laterality: right Qualified Code(s): S05.31XA - Ocular laceration without prolapse or loss of intraocular tissue, right eye, initial encounter Disposition: Acute Care Hospital Transfer Transfer To: [facility] Reason For Transfer: Globe perforation Accepting Physician: Antonio Time Discussed w/Accepting Physician: 18:50 Condition: (2) Stable Forms: Patient Portal Access Time of Disposition: 18:50 Quality - Quality Measures Quality Measures: N/A - Blood Pressure Screening Does Patient Have Any of the Following: Active Dx of HTN Blood Pressure Classification: Hypertensive Reading Systolic Measurement: 144 Diastolic Measurement: 77 Screening for High Blood Pressure: Patient Exclusion, Hx of HTN [G9744]
[2018-12-26 18:51] LABS: ABSOLUTE NEUTROPHIL COUNT 5.51; BASO % 0.4 % (0-6); EOS % 1.7 % (0-6); GRAN % 52.8 % (47-80); HEMATOCRIT 45.5 % (42.0-52.0); HEMOGLOBIN 15.3 gm/dl (14.0-18.0); MEAN CELL VOLUME 93.2 fl (81-97); MEAN CORPUSCULAR HEMOGLOBIN 31.4 pg (27-33); MEAN CORPUSCULAR HGB CONC 33.6 g/dl (32-36); MEAN PLATELET VOLUME 10.7 fl (7.4-10.4); MONO % 10.1 % (0-9); PLATELET COUNT 187 K/uL (130-400); RED BLOOD COUNT 4.88 M/uL (4.40-5.70); RED CELL DISTRIBUTION WIDTH 12.7 % (11.5-14.5); WHITE BLOOD COUNT W/O DIFF 10.5 K/uL (4.2-12.2)
[2018-12-26] MEDS: PROPARACAINE HCL OPTH 15ML BTL OPTH ONE (18:54)
[2018-12-26] MEDS: FENTANYL PF 100MCG/2ML VIAL IVP ONE (18:55)
[2018-12-26] MEDS: 0.9 % SODIUM CHLORIDE 1000ML 1,000 ML IV SCH (18:55)
[2018-12-26] MEDS: Diph,Pert(Acell),Tet Vac 0.5 ML SYR IM ONE (18:56)
[2018-12-26] MEDS: CLINDAMYCIN 600MG/50ML PREMIX 600 MG/50 ML BAG IVPB ONE (18:57)
[2018-12-26 19:02] LABS: BILIRUBIN,TOTAL < 0.20 mg/dL (0.2-1.0); BLOOD UREA NITROGEN 21 mg/dL (6-20); CREATININE 1.1 mg/dL (0.7-1.2); EST GLOMERULAR FILTRATION RATE > 60 mL/min
[2018-12-26] MEDS: ONDANSETRON HCL IV 4 MG/2 ML VIAL IVP ONE (19:02)
[2018-12-26 19:03] LABS: TOTAL PROTEIN 7.3 g/dL (6.6-8.7)
[2018-12-26 19:04] LABS: GLUCOSE,RANDOM 136 mg/dL (74-109)
[2018-12-26 19:07] LABS: ALB/GLOB RATIO 1.4 (1.1-1.8); ALBUMIN 4.3 g/dL (4.0-5.0); ALKALINE PHOSPHATASE 123 U/L (40-129); AST/SGOT 22 U/L (10.0-50.0)
[2018-12-26 19:20] LABS: ALT/SGPT 25 U/L (<41)
--- NOTE | 2018-12-28 05:58 | CT SCAN REPORT ---
EXAM: CT SCAN ORBITS/FOSSA/SELLA WO CONT HISTORY: PATIENT WAS STRUCK IN THE RIGHT EYE WITH A METALLIC WIRE THROWN FROM THE LAWNMOWER. THE WIRE STUCK IN THE RIGHT FACE THROUGH THE LOWER AND UPPER LIP, RIGHT CHEEK, AND INTO THE RIGHT EYE AND EYELID. PATIENT PULLED THE WIRE OUT. EVALUATE FOR OCULAR GLOBE INJURY. TECHNIQUE: Standard CT imaging of the orbits was performed in the axial plane without contrast. Additional coronal and sagittal reformatted images were also performed. COMPARISON: None. FINDINGS: There is soft tissue swelling superficially within the right cheek and eyelid regions. The soft tissue swelling is confined to the preseptal regions. There is no postseptal soft tissue swelling. The ocular globes appear intact. There is no radiopaque foreign body or soft tissue air. The bones appear intact. The paranasal sinuses are clear. IMPRESSION: 1. SUPERFICIAL RIGHT PERIORBITAL AND CHEEK SOFT TISSUE SWELLING WITH NO VISIBLE FOREIGN BODY OR SOFT TISSUE AIR. 2. NO OCULAR GLOBE INJURY IDENTIFIED. JOB NUMBER: [id number] MTDD
== END 2018-12-26 19:26 | disposition short-term general hospital (02) ==
LOC: ER 18:32
DX: S05.31XA Ocular laceration without prolapse or loss of intraocular tissue, right eye, initial encounter (principal); I10 Essential (primary) hypertension; W26.8XXA Contact with other sharp object(s), not elsewhere classified, initial encounter; W45.8XXA Other foreign body or object entering through skin, initial encounter; W20.8XXA Other cause of strike by thrown, projected or falling object, initial encounter; Y93.89 Activity, other specified
CPT/HCPCS: 70480; 80053; 85025; 90715; 96365; 96372; 96375; 99285; J2405; J7030

== ENCOUNTER 2019-02-25 21:50 | Emergency (ER) | payer OTHER ==
[2019-02-25] MEDS ORDERED: KETOROLAC 30 MG/ML VIAL IVP ONE (21:59)
[2019-02-25] MEDS ORDERED: 0.9 % SODIUM CHLORIDE 1000ML 1,000 ML IV SCH (22:00)
--- NOTE | 2019-02-25 22:03 | Emergency Department Record ---
History of Present Illness - General Chief complaint: Flank Pain Stated complaint: LT ABD/FLANK PAIN Time Seen by Provider: 02/25/19 21:53 Source: Patient Mode of Arrival: Ambulatory Limitations: No limitations - History of Present Illness Initial comments: 53 yo male presents to ED for evaluation of left sided flank and abdominal pain associated with "dark urine", reports it feels like pressure in the abdomen. Patient denies fevers, chills, blood in the stool, or loose stools. Patient does report a history of kidney stones, denies previous history of diverticulitis or previous abdominal surgery. MD Complaint: Other Onset/Timin -: Minutes(s) Location: Left flank Radiation: None Severity: Moderate Severity scale (1-10): 8 Quality: Sharp Consistency: Constant Improves with: None Worsens with: None Reports: Nausea/vomiting - Related Data Sexually active: Yes Previous Rx's Medication Instructions Recorded Ibuprofen [Motrin] 800 mg PO TID PRN #20 tab 08/29/17 Hydrocodone/Acetaminophen [Pioneer 1 each PO Q6H PRN #10 tablet 02/25/19 7.5-325 Tablet] Ibuprofen [Motrin] 800 mg PO Q6H PRN #30 tab 02/25/19 Tamsulosin HCl [Flomax] 0.4 mg PO DAILY #14 cap.er.24h 02/25/19 Allergies Allergy/AdvReac Type Severity Reaction Status Date / Time No Known Drug Allergies Allergy Verified 12/26/18 18:48 Travel Screening - Travel/Exposure Within Last 30 Days Have you traveled within the last 30 days?: No - Travel/Exposure Within Last Year Have you traveled outside the [place] in the last year?: No - Additonal Travel Details Have you been exposed to anyone with a communicable illness?: No - Travel Symptoms Symptom Screening: None Review of Systems Constitutional: Denies: Chills, Fever, Malaise, Night sweats Eyes: Denies: Eye discharge, Eye pain ENT: Denies: Congestion, Ear pain, Epistaxis Respiratory: Denies: Cough, Dyspnea Cardiovascular: Denies: Chest pain, Dyspnea on exertion Endocrine: Denies: Fatigue, Heat or cold intolerance Gastrointestinal: Reports: Abdominal pain, Nausea. Denies: Constipation, Vomiting Genitourinary: Reports: Hematuria. Denies: Incontinence, Retention Musculoskeletal: Reports: Back pain. Denies: Arthralgia Skin: Denies: Bruising, Change in color Neurological: Denies: Abnormal gait, Confusion, Headache, Seizure Psychiatric: Denies: Anxiety Hematological/Lymphatic: Denies: Anemia, Blood Clots Past Medical History - SOCIAL HISTORY Smoking Status: Current every day smoker Alcohol Use: None Drug Use: None - RESPIRATORY Hx Respiratory Disorders: No - CARDIOVASCULAR Hx Cardio Disorders: Yes Hx Cardiac Cath: Yes (1998, cardiac workup) Hx Chest Pain: Yes (1998 and 2017) Hx Hypertension: Yes (on meds good control) Comment:: hyper lipidemia - NEURO Hx Neuro Disorders: No - GI Hx GI Disorders: Yes Hx Reflux: Yes (hx 10years ago) Hx Rectal Bleeding: Yes - Hx Genitourinary Disorders: Yes Hx Bladder Problem: Yes (Bladder Stones) Hx Kidney Stones: Yes (lithotripsy) - ENDOCRINE Hx Endocrine Disorders: No - MUSCULOSKELETAL Hx Musculoskeletal Disorders: Yes Comment:: joint pain - PSYCH Hx Psych Problems: Yes Hx Anxiety: Yes (occassionally panic attacks) - HEMATOLOGY/ONCOLOGY Hx Hematology/Oncology Disorders: No Family Medical History Any Significant Family History?: No Family Hx Comment (NOT TO BE USED IN PLACE OF ITEMS BELOW): Unknown due to adoption Physical Exam - General General Appearance: Alert, Oriented x3, Cooperative, Moderate distress Limitations: No limitations - Head Head exam: Atraumatic, Normocephalic, Normal inspection Head exam detail: negative: Abrasion, Contusion, Martell's sign, General tenderness, Hematoma, Laceration - Eye Eye exam: Normal appearance. negative: Conjunctival injection, Periorbital swelling, Periorbital tenderness, Scleral icterus - ENT Ear exam: negative: Auricular hematoma, Auricular trauma Nasal Exam: negative: Active bleeding, Discharge, Dried blood, Foreign body Mouth exam: negative: Drooling, Laceration, Muffled voice, Tongue elevation - Neck Neck exam: Normal inspection. negative: Meningismus, Tenderness - Respiratory Respiratory exam: Normal lung sounds bilaterally. negative: Rales, Respiratory distress, Rhonchi, Stridor - Cardiovascular Cardiovascular Exam: Regular rate, Normal rhythm, Normal heart sounds - GI/Abdominal GI/Abdominal exam: Soft, Tenderness (TTP LLQ on examination, no rebound or gua rding present.). negative: Rebound, Rigid - Rectal Rectal exam: Deferred - exam: Deferred - Extremities Extremities exam: Normal inspection. negative: Pedal edema, Tenderness - Back Back exam: Denies: CVA tenderness (R), CVA tenderness (L) - Neurological Neurological exam: Alert, Normal gait, Oriented X3 - Psychiatric Psychiatric exam: Normal affect, Normal mood - Skin Skin exam: Normal color. negative: Abrasion Type of lesion: negative: abrasion Course Vital Signs 02/25/19 21:53 Temperature 98.9 F Pulse Rate 81 Respiratory 20 Rate Blood Pressure 145/93 Pulse Ox 97 - Reevaluation(s) Reevaluation #1: 02/25/19 22:19 UA reviewed: 21-35 RBCs 0-2 WBCs Few Uric Acid crystals Reevaluation #2: 02/25/19 22:29 Laboratory studies were reviewed and appear grossly unremarkable for an acute process. Patient is currently in CT for imaging. Reevaluation #3: 02/25/19 23:49 CT Abdomen/Pelvis: 4x2 mm caclulus left proximal ureter with mild fat stranding present Patient was updated on all results, resting comfortably at this time. Will treat with Flomax, Pioneer, and Motrin 800 mg as directed. Patient appears stable for discharge at this time with instructions to follow-up with Dr. Pimentel for further evaluation. Medical Decision Making - Lab Data Result diagrams: 02/25/19 22:10 02/25/19 22:10 Disposition Disposition: Discharge Clinical Impression: Ureteral calculus, left Disposition: Home, Self-Care Condition: (2) Stable Instructions: Kidney Stones (ED) Additional Instructions: Return to ED if your symptoms worsen or if you have any concerns. Flomax, Pioneer, and Motrin as directed. Follow-up with Dr. Pimentel in 3-5 days as directed. Prescriptions: Tamsulosin HCl [Flomax] 0.4 mg PO DAILY #14 cap.er.24h Ibuprofen [Motrin] 800 mg PO Q6H PRN #30 tab PRN Reason: Pain - Mod To Severe (5-10) Hydrocodone/Acetaminophen [Pioneer 7.5-325 Tablet] 1 each PO Q6H PRN #10 tablet PRN Reason: Pain - Moderate (5-7) Referrals: Mj Pimentel M.D. [MEDICAL DOCTOR] - [facility] Special[facility] [Provider Group] Forms: Patient Portal Access Time of Disposition: 22:48 Quality - Quality Measures Quality Measures: N/A - Blood Pressure Screening Does Patient Have Any of the Following: Active Dx of HTN Blood Pressure Classification: Hypertensive Reading Systolic Measurement: 145 Diastolic Measurement: 93 Screening for High Blood Pressure: Patient Exclusion, Hx of HTN [G9744]
[2019-02-25 22:04] LABS: URINE APPEARANCE CLEAR; URINE BILIRUBIN NEGATIVE (NEGATIVE); URINE BLOOD LARGE (NEGATIVE); URINE COLOR YELLOW; URINE GLUCOSE (UA) NEGATIVE (NEGATIVE); URINE KETONE NEGATIVE (NEGATIVE); URINE LEUKOCYTE ESTERASE NEGATIVE (NEGATIVE); URINE NITRITE NEGATIVE (NEGATIVE); URINE PROTEIN NEGATIVE (NEGATIVE); URINE UROBILINOGEN 0.2 E.U./dL (0.20 - 1.00)
[2019-02-25 22:12] LABS: URINE EPITHELIAL CELLS 0 - 2 (FEW); URINE RBC 21 - 35 (NONE SEEN); URINE WBC 0 - 2 (0-2/hpf)
[2019-02-25 22:13] LABS: URINE BACTERIA FEW; URINE URIC ACID CRYSTALS FEW /hpf; URINE YEAST FEW
[2019-02-25 22:17] LABS: ABSOLUTE NEUTROPHIL COUNT 7.26; HEMOGLOBIN 15.2 gm/dl (14.0-18.0); MEAN CELL VOLUME 92.4 fl (81-97); MEAN CORPUSCULAR HEMOGLOBIN 31.2 pg (27-33); MEAN CORPUSCULAR HGB CONC 33.8 g/dl (32-36); PLATELET COUNT 182 K/uL (130-400); RED BLOOD COUNT 4.87 M/uL (4.40-5.70); RED CELL DISTRIBUTION WIDTH 12.7 % (11.5-14.5); WHITE BLOOD COUNT W/O DIFF 11.5 K/uL (4.2-12.2)
[2019-02-25 22:26] LABS: BLOOD UREA NITROGEN 30 mg/dL (6-20); CREATININE 1.3 mg/dL (0.7-1.2); EST GLOMERULAR FILTRATION RATE > 60 mL/min; LIPASE 38 U/L (13-60); TOTAL PROTEIN 7.4 g/dL (6.6-8.7)
[2019-02-25 22:28] LABS: GLUCOSE,RANDOM 123 mg/dL (74-109)
[2019-02-25 22:31] LABS: ALB/GLOB RATIO 1.4 (1.1-1.8); ALBUMIN 4.3 g/dL (4.0-5.0); ALKALINE PHOSPHATASE 104 U/L (40-129); ALT/SGPT 29 U/L (<41); AST/SGOT 18 U/L (10.0-50.0)
[2019-02-25 22:38] LABS: PLATELET ESTIMATE NORMAL (NORMAL)
--- NOTE | 2019-02-26 13:51 | CT SCAN REPORT ---
EXAM: CT SCAN OF THE ABDOMEN AND PELVIS WITHOUT CONTRAST HISTORY: LEFT FLANK PAIN, BACK PAIN, AND LEFT LOWER QUADRANT PAIN FOR THE PAST THREE HOURS. PREVIOUS HISTORY OF KIDNEY STONES. HEMATURIA. TECHNIQUE: Standard CT imaging of the abdomen and pelvis was performed without contrast. Additional coronal and sagittal reformatted images were also performed. Comparison: 06/11/17. FINDINGS: There is minor dependent atelectasis at both lung bases. Small noncalcified nodules at both lung bases are unchanged. A calcified left hilar lymph node is present. The liver, gallbladder, biliary tree, pancreas, spleen, and adrenal glands are normal. A 4 x 2 mm calculus is present within the proximal left ureter and results in mild hydronephrosis with associated perinephric fat stranding. The kidneys and ureters are otherwise normal. Hyperdense material is present dependently within the bladder lumen and likely represents small layering stones. The aorta is normal in caliber. There is no retroperitoneal lymphadenopathy. There are a few diverticula within the sigmoid colon with no evidence for acute diverticulitis. The large and small bowel loops are otherwise normal. An appendiceal stump is visible and is unremarkable. There is no pneumoperitoneum or ascites. There are no pelvic masses. There is a tiny fat containing umbilical hernia. Degenerative changes are present within the spine. There are no acute osseous abnormalities. IMPRESSION: 1. 4 X 2 MM CALCULUS WITHIN THE PROXIMAL LEFT URETER RESULTING IN MILD HYDRONEPHROSIS. 2. MINOR SIGMOID DIVERTICULOSIS WITH NO DIVERTICULITIS. 3. ADDITIONAL STABLE CHRONIC FINDINGS ABOVE. JOB NUMBER: [id number] [facility]
== END 2019-02-26 00:01 | disposition home or self-care (01) ==
LOC: ER 21:50
DX: N13.2 Hydronephrosis with renal and ureteral calculous obstruction (principal); R11.2 Nausea with vomiting, unspecified; R31.9 Hematuria, unspecified; I10 Essential (primary) hypertension; F17.210 Nicotine dependence, cigarettes, uncomplicated; Z87.442 Personal history of urinary calculi
CPT/HCPCS: 74176; 80053; 81001; 83690; 85027; 96361; 96374; 99284; J1885; J7030